=== PATIENT | male | born 1990 | race Two or more races ===

== ENCOUNTER 2016-12-21 11:21 | Emergency (ER) | payer SELFPAY ==
[~2016-12-21] VITALS: Ht 172.7 cm; Wt 86.0 kg
[2016-12-21] MEDS ORDERED: KETOROLAC 60MG/2ML VIAL IM ONE (16:15)
[2016-12-21 18:54] VITALS: BP 122/83
[2016-12-21] MEDS ORDERED: ACETAMINOPHEN 325MG TABLET PO ONE (19:00)
== END 2016-12-21 19:16 | disposition home or self-care (01) ==
LOC: ER 15:26
DX: S00.83XA Contusion of other part of head, initial encounter (principal); F12.10 Cannabis abuse, uncomplicated; V03.99XA Pedestrian with other conveyance injured in collision with car, pick-up truck or van, unspecified whether traffic or nontraffic accident, initial encounter; Y93.89 Activity, other specified; Y92.89 Other specified places as the place of occurrence of the external cause; Y99.8 Other external cause status
CPT/HCPCS: 70450; 70486; 96372; 99284; J1885; Z7610

== ENCOUNTER 2018-06-03 22:35 | Emergency (ER) | payer MEDICAID ==
[~2018-06-03] VITALS: Ht 170.2 cm; Wt 72.0 kg
[2018-06-03] MEDS ORDERED: ACETAMINOPHEN 325MG TABLET PO ONE (23:15)
[2018-06-04 01:12] VITALS: BP 132/72
== END 2018-06-04 01:15 | disposition home or self-care (01) ==
LOC: ER 22:35
DX: S09.8XXA Other specified injuries of head, initial encounter (principal); F12.10 Cannabis abuse, uncomplicated; Y04.0XXA Assault by unarmed brawl or fight, initial encounter; Y93.89 Activity, other specified; Y92.018 Other place in single-family (private) house as the place of occurrence of the external cause
CPT/HCPCS: 36415; 70450; 72125; 99284; G0482